=== PATIENT | female | born 1975 | race Caucasian/White ===

== ENCOUNTER → 2019-09-09 | Outpatient (CLI) | payer OTHER ==
[~2019-09-09] MED LIST: 24HOUR ALLERGY10 MG PO; ACETAMINOPHEN325 M1 PO; FLONASE 0.05%50 MCG NASAL; IBUPROFEN 600600 M1 PO; LORTAB 5 MG/5001 TA1 PO; PRENATAL PO; TOPAMAX 100 MG100 MG PO; TRAZODONE HCL50 MG PO; TUMS PO; VENLAFAXINE HC150 MG PO
== END ==
LOC: CAT 07:41
DX: Z13.6 Encounter for screening for cardiovascular disorders (principal); I25.10 Atherosclerotic heart disease of native coronary artery without angina pectoris; E78.00 Pure hypercholesterolemia, unspecified

== ENCOUNTER → 2020-09-28 | Outpatient (CLI) | payer BC | LOC: SJCVCIMAG 15:58 | PROVIDERS: ATTEND Internal Medicine Cardiovascular Disease | DX: I34.0 Nonrheumatic mitral (valve) insufficiency (principal); Z86.16 Personal history of COVID-19; Z82.49 Family history of ischemic heart disease and other diseases of the circulatory system ==